=== PATIENT | female | born 1975 | race Caucasian/White ===

== ENCOUNTER 2019-08-05 07:42 | Emergency (ER) | payer MEDICAID, SELFPAY ==
--- NOTE | ~2019-08-05 | CT_ITS ---
EXAMINATION: CTA chest PE protocol DATE: 08/05/2019 10:14 INDICATION: Hemoptysis. TECHNIQUE: Computed tomography angiography (CTA) of the chest was performed with 100 mL Omnipaque-350 intravenous contrast timed to evaluate the pulmonary arteries. Coronal maximum intensity projection 3D-reconstructions were created by the technologist. Automated exposure control and iterative reconst ruction technique were employed. The dose-length product was 136.90 mGy-cm. COMPARISON: Chest 2 views 08/05/2019 FINDINGS: There is mild scarring at the lung apices. No pleural effusion. The heart size is normal. N o pericardial effusion. There is no pulmonary embolus. There are no pathologically enlarged lymph nod es. Thoracic kyphosis is noted. There is mild chronic anterior wedging of multiple thoracic vertebral bodies. There is severe spondylosis in mid thoracic spine. There is a benign bone island in T2 verte bral body. IMPRESSION: 1. No pulmonary embolus. Reviewed, dictated and finalized at location A. IMPRESSION: 1. No pulmonary embolus.
--- NOTE | ~2019-08-05 | XR_ITS ---
EXAMINATION: XR chest 2V 08/05/2019 08:25 INDICATION: Cough PROCEDURE: 2 view chest COMPARISON: 06/27/2017 FINDINGS: The lungs are clear. The cardiomediastinal silhouette is within normal limits. There are no pleural effusions. There is no pneumothorax suspected. IMPRESSION: 1: NO ACUTE CARDIOPULMONARY DISEASE. Reviewed, dictated and finalized at location A.
[2019-08-05 07:51] VITALS: BP 153/92; PULSE 102; RESP 16; TEMP 37; O2SAT 100
--- NOTE | 2019-08-05 08:06 | ED.NAVMDI ---
HPI - Nausea/Vomiting/Diarrhea General Chief complaint: Nausea/Vomiting/Diarrhea Stated complaint: coughing up blood Time Seen by Provider: 08/05/19 07:47 Source: patient Mode of arrival: ambulatory Limitations: no limitations History of Present Illness HPI Narrative: Pt is a 44 y/o female who presents to the ED with c/o hemoptysis that started this morning when she woke up. Pt also notes that she had epistaxis this morning and she feels nauseas from tasting the blood in the back of her throat. Pt reports associated myalgia and generalized weakness. She states that 3 days ago she started with a migraine, sore throat, sweats, chills, and a subjective fever. Pt's migraine is better and she denies rhinorrhea, calf pain, contraceptive use, or any recent foreign/domestic travel. She is a smoker. MD elicited complaint: other (hemoptysis) Onset (ago): hour(s) (this morning) Description of vomiting: bloody Associated nausea: Yes Associated symptoms: myalgias and weakness (generalized) Related Data Home Medications Medication Instructions Recorded Confirmed albuterol sulfate INHALATION 08/05/19 Allergies Allergy/AdvReac Type Severity Reaction Status Date / Time bee venom protein (honey bee) Allergy Severe Anaphylactic Verified 08/21/18 08:27 Shock Review of Systems Review of Systems: All systems reviewed & are unremarkable except as noted in HPI and below Constitutional: Constitutional: Reports body ache(s), Reports chills, Reports fever(s) (subjective), Reports weakness (generalized) and Reports other (sweats) ENT: Reports epistaxis, Reports sore throat and Denies other (rhinorrhea) Respiratory: Respiratory: Reports hemoptysis Gastrointestinal: Gastrointestinal: Reports nausea Musculoskeletal: Musculoskeletal: Denies other (calf pain) Neurologic: Reports headache(s) (resolved) [facility] Past Medical History Medical History (Updated 08/05/19 @ 11:43 by Emanuel Roy DO) Anxiety Arm fracture Asthma Bronchitis Depression Pneumonia Surgical History Surgical History (Updated 08/05/19 @ 08:31 by Yoana Mena) H/O removal of cyst benign rt breast H/O tubal ligation Social History Social History Smoking status: Current every day smoker Alcohol intake: current Exam Narrative: Exam Narrative: APPEARANCE: No acute distress, nontoxic, resting in bed EYES: EOMI HEENT: Normocephalic, atraumatic, TMs clear bilaterally, bilateral turbinates boggy, mild erythema no exudate of posterior pharynx RESPIRATORY: No respiratory distress Clear to auscultation bilaterally with no rhonchi wheezing or rales. CARDIOVASCULAR: Regular rate and rhythm without murmurs rubs or gallops. ABDOMINAL: Soft, nontender, nondistended, no rebound or guarding MUSCULOSKELETAl: Moves all extremities. No clubbing, cyanosis or edema. NEURO: Awake and alert. Following commands, speech normal, no focal deficits SKIN:: Warm, dry. No rashes lesions or abrasions PSYCHIATRIC: Normal affect/mood, TMs clear bilaterally Course Course Emergency Course: Patient states she is feeling better this time Discussed with patient results of workup and diagnosis. Discussed need for follow-up with primary care, proper use of medication, and reasons to return to the emergency department. Patient understands and agrees to current treatment plan Vital Signs Vital signs: Vital Signs Temperature 98.6 F 08/05/19 07:51 Pulse Rate 102 H 08/05/19 07:51 Respiratory Rate 16 08/05/19 07:51 Blood Pressure 153/92 H 08/05/19 07:51 Pulse Oximetry 100 08/05/19 07:51 Temperature 98.6 F 08/05/19 07:51 Pulse Rate 102 H 08/05/19 07:51 Respiratory Rate 16 08/05/19 07:51 Blood Pressure 153/92 H 08/05/19 07:51 Pulse Oximetry 100 08/05/19 07:51 MDM - Nausea/Vomiting/Diarrhea Lab Data Result diagrams: 08/05/19 08:28 08/05/19 08:25 Labs: Lab Results 0
[2019-08-05 08:43] LABS: Basophils Percent Auto 0.7 % (0.2-1.2); Eosinophils Absolute Auto 0.5 K/mm3 (0-0.3); Eosinophils Percent Auto 8.9 % (0-4.4); Hemoglobin 12.1 g/dL (12.0-15.0); Immature Granulocyte Absolute 0.02 K/mm3 (0.00-0.031); Immature Granulocyte Percent A 0.3 % (0-0.5); Lymphocytes Absolute Auto 1.84 K/mm3 (0.9-3.2); Lymphocytes Percent Auto 31.4 % (18.3-44.2); Mean Corpuscular HGB Conc 32.7 g/dl (32-36); Mean Corpuscular Volume 91.8 fl (80-100); Mean Platelet Volume 9.3 fl (7.4-10.4); Monocytes Absolute Auto 0.5 K/mm3 (0.1-0.6); Monocytes Percent Auto 8.2 % (2.6-8.5); Neutrophils Percent Auto 50.5 % (45.5-73.1); Platelet Count Result 313 k/mm3 (150-375); Red Blood Count 4.03 M/mm3 (4.2-5.4); Red Cell Distribution Width 12.8 % (11.5-14.5); White Blood Count 5.9 K/mm3 (4.5-10.0)
[2019-08-05 08:53] LABS: INR 0.9; Partial Thromboplastin Time 25.1 SECONDS (22.3-36.8); Prothrombin Time 11.8 Seconds (11.1-14.7)
[2019-08-05] MEDS: SODIUM CHLORIDE 0.9% IV 1,000 ML 999 ML IV CONT (09:07)
[2019-08-05 09:44] LABS: Alanine Aminotransferase 12 U/L (4-35); Albumin Level 3.9 g/dL (3.5-5.1); Alkaline Phosphatase 52 U/L (38-126); Aspartate Amino Transferase 19 U/L (14-36); Bilirubin,Total 0.2 mg/dL (0.2-1.3); Blood Urea Nitrogen 15 mg/dL (7-17); Calcium 8.9 mg/dL (8.4-10.2); Carbon Dioxide 29 mmol/L (22-30); Chloride 105 mmol/L (98-107); Estimated CRCL calculation 35 ml/min; Estimated Glomerular Filt Rate > 60; Glucose 91 mg/dL (65-105); Potassium 4.3 mmol/L (3.4-5.0); Sodium 138 mmol/L (137-145)
--- NOTE | 2019-08-05 11:31 | PC.NURSE ---
Contacted lab about UA results, lab states they could not locate specimen. Another specimen sent to lab at this time, waiting for results.
[2019-08-05 11:38] LABS: Add Urine Microscopic? YES; Appearance Urine Cloudy (Clear); Bacteria Urine Trace /hpf; Bilirubin Urine Negative (Negative); Blood Urine Negative (Negative); Calcium Oxalate Crystals Urine Many /hpf; Color Urine Yellow (Yellow); Glucose Urine UA Negative (Negative); Ketones Urine Negative (Negative); Leukocyte Esterase Ur Negative LEU/UL (Negative); Mucus Urine Few /lpf; Nitrate Urine Negative (Negative); Protein Urine Negative (Negative); Specific Grav Ur 1.023 (1.001-1.035); Squamous Epithelial Cell Urine Many /hpf (Few); Urobilinogen Urine Negative mg/dL (<2.0); WBC Urine 0-3 /hpf
[2019-08-05 11:48] VITALS: BP 134/70; PULSE 86; RESP 18; O2SAT 99
== END 2019-08-05 12:11 | disposition home or self-care (01) ==
PROVIDERS: Emergency Provider Emergency Medicine
DX: J06.9 Acute upper respiratory infection, unspecified (principal); J45.909 Unspecified asthma, uncomplicated; F17.200 Nicotine dependence, unspecified, uncomplicated
CPT/HCPCS: 36415; 71046; 71275; 80053; 81001; 81025; 85025; 85610; 85730; 87804; 96361; 96365; 99284; J0131; J7030; Q9967

== ENCOUNTER 2021-07-13 10:10 | Emergency (ER) | payer OTHER, SELFPAY ==
[2021-07-13 10:23] VITALS: BP 137/76; PULSE 94; RESP 16; TEMP 36.8; O2SAT 100
--- NOTE | 2021-07-13 10:24 | ED.BACK ---
HPI - Back Pain/Injury General Chief Complaint: Back Pain/Injury Stated Complaint: Back/side pain Time Seen by Provider: 07/13/21 10:24 Source: patient Mode of arrival: ambulatory Limitations: no limitations History of Present Illness HPI Narrative: 46 yo F presents with c/o R sided low back pain with radiation into R buttock and down R leg for 4 days. taking ibuprofen and tylenol does relieve pain a little. pt thought she had kidney infection so started taking Azo with no relief. has not urinary symptoms. ambulatory with steady gait. no loss of bowel or bladder. no weakness to LEs. no saddle anesthesia. all systems reviewed and negative except as noted above. Related Data Home Medications Medication Instructions Recorded Confirmed albuterol sulfate 90 mcg INHALATION DIRECTED PRN 07/13/21 07/13/21 Allergies Allergy/AdvReac Type Severity Reaction Status Date / Time bee venom protein (honey bee) Allergy Severe Anaphylactic Verified 08/21/18 08:27 Shock Review of Systems Review of Systems: All systems reviewed & are unremarkable except as noted in HPI and below Constitutional: Constitutional: Reports as per HPI Eyes: Eyes: Reports as per HPI ENT: Reports as per HPI Cardiovascular: Cardiovascular: Reports as per HPI Respiratory: Respiratory: Reports as per HPI Gastrointestinal: Gastrointestinal: Reports as per HPI Genitourinary: Genitourinary: Reports as per HPI Musculoskeletal: Musculoskeletal: Reports back pain and Reports radiating pain into limb Integumentary/Breasts: Skin/Breast: Reports as per HPI Neurologic: Reports as per HPI Psychiatric: Psychiatric: Reports as per HPI Endocrine: Endocrine: Reports as per HPI Hematologic/Lymphatic: Hematologic/Lymphatic: Reports as per HPI Allergic/Immunologic: Allergic/Immunologic: Reports as per HPI [facility] Past Medical History Medical History (Updated 07/13/21 @ 10:46 by Nery Nelson NP) Anxiety Arm fracture Asthma Bronchitis Depression Pneumonia Surgical History Surgical History (Updated 08/05/19 @ 08:31 by Yoana Mena) H/O removal of cyst benign rt breast H/O tubal ligation Social History Social History Smoking status: Current every day smoker Alcohol intake: current Comments At time of signature, agree with nursing past medical, surgical, social and family history. There is no relevant family history pertinent to the presenting complaint. Exam Narrative: GENERAL: Well-appearing, well-nourished, and in no acute distress. HEAD: Normocephalic, atraumatic. EYES: PERRLA and EOMI. NECK: Supple. No lymphadenopathy. CHEST: Clear to auscultation. No respiratory distress. HEART: Regular rate and rhythm. Distal pulses palpable and equal, cap refill <3 seconds ABDOMEN: Soft, nontender, nondistended, normal active bowel sounds, no palpable or pulsatile masses. No CVA tenderness MUSCULOSKELETAL: Normal range of motion and strength in all extremities; 5/5 strength with hip flexion and extension, dorsiflexion and extension, knee flexion and extension, plantar flexion and extension. Normal sensation in dermatomal distributions with sensitivity to light touch and pain. No midline back tenderness to palpation. Tender to R SI/muscle tenderness. Transfers from lying to sitting to standing. SKIN: Warm, dry, no rash. No ecchymosis, erythema, open wounds to back. NEURO: No focal deficits. Alert and oriented x3. Reflexes intact. Normal gait. PSYCH: Normal mood and affect Course Course Level of Care: Express Care Visit Vital Signs Vital signs: Vital Signs Temperature 36.8 C 07/13/21 10:23 Pulse Rate 94 07/13/21 10:23 Respiratory Rate 16 07/13/21 10:23 Blood Pressure 137/76 07/13/21 10:23 Pulse Oximetry 100 07/13/21 10:23 Temperature 36.8 C 07/13/21 10:23 Pulse Rate 94 07/13/21 10:23 Respiratory Rate 16 07/13/21 10:23 Blood Pressure 137/76 02
[2021-07-13] MEDS: KETOROLAC 30 MG/ML VIAL (*BKC) IM (10:43)
== END 2021-07-13 11:08 | disposition home or self-care (01) ==
PROVIDERS: Emergency Provider Nurse Practitioner Family
DX: M54.41 Lumbago with sciatica, right side (principal); J45.909 Unspecified asthma, uncomplicated; F17.200 Nicotine dependence, unspecified, uncomplicated
CPT/HCPCS: 81003; 96372; 99213; G0463; J1885

== ENCOUNTER 2023-02-12 10:53 | Emergency (ER) | payer OTHER, SELFPAY ==
[2023-02-12 11:08] VITALS: BP 131/80; PULSE 102; RESP 16; TEMP 36.8; O2SAT 100
[2023-02-12 11:15] VITALS: BP 131/80; PULSE 102; RESP 16; TEMP 36.8; O2SAT 100
--- NOTE | 2023-02-12 11:19 | ECG_ITS ---
Measurements Intervals [place] Rate: 99 P: 59 SC: 133 QRS: 40 QRSD: 88 T: 74 QT: 345 QTc: 444 Interpretive Statements SINUS RHYTHM POSSIBLE LEFT ATRIAL ENLARGEMENT CANNOT RULE OUT SEPTAL INFARCT, AGE INDETERMINATE BORDERLINE ST-T WAVE ABNORMALITY- DIFFUSE LEADS ABNORMAL ECG NO PREVIOUS ECG AVAILABLE FOR COMPARISON Electronically Signed On 02-12-2023 11:34:36 CDT by Shawn Carvalho D.O.
--- NOTE | 2023-02-12 11:20 | PC.NURSE ---
in br to obtain ua spec.
--- NOTE | 2023-02-12 11:20 | ED.GENADULT ---
HPI - General Adult General Chief complaint: Upper Respiratory Infection Stated complaint: weak,diarrhea,chest pain exposed to a gas leak Time Seen by Provider: 02/12/23 11:18 Source: patient Mode of arrival: ambulatory Limitations: no limitations History of Present Illness HPI narrative: Kitty is a 48-year-old female patient presenting to the clinic today with complaints of a history of exposure to a gas leak on Sunday night. She reports that she felt okay Sunday and however Sunday she developed chest pain that occurred overnight into about 3:00 a.m Sunday morning. She reports reports that she thought that this chest pain was due to acid reflux. She took some Pepto and went to bed and her stated she moaned all night long due to the pain. She reports that when she woke up Sunday morning the pain was gone however she is now having weakness, shaking, and diarrhea. She denies any shortness of breath or chest pain currently. She denies any known COVID, flu, or strep exposure. She denies any fever or chills. Related Data Home Medications Medication Instructions Recorded Confirmed albuterol sulfate 90 mcg/actuation 90 mcg inhalation DIRECTED PRN 07/13/21 02/12/23 aerosol inhaler Shortness Of Breath Iud 02/12/23 Unknown Antidepressant 02/12/23 Allergies Allergy/AdvReac Type Severity Reaction Status Date / Time bee venom protein (honey bee) Allergy Severe Anaphylactic Verified 02/12/23 11:16 Shock Review of Systems Review of Systems: Pertinent positives per HPI. Patient denies any fever, chills, rash, headache, visual changes, dizziness, cough, shortness of breath, chest pain, palpitations, nausea, vomiting, diarrhea, constipation, abdominal pain, or any urinary issues. [facility] Past Medical History Medical History Anxiety Arm fracture Asthma Bronchitis Depression Pneumonia Surgical History Surgical History H/O removal of cyst benign rt breast H/O tubal ligation Social History Social History Smoking status: Current every day smoker Alcohol intake: current Comments At the time of my signature, I reviewed and agree with the nursing past medical, surgical, social, and family history. There is no relevant family history pertinent to the patient complaint. Exam Narrative: General: Well-developed, thin, in no apparent distress, upper extremity tremors, anxious appearing Head: Normocephalic, atraumatic Eyes: Pupils equally round and reactive to light bilaterally, EOM intact, sclera and conjunctive clear, no discharge, lids normal Ears: TMs intact and clear, ear canals clear, no drainage, grossly hearing normal. Nose: Nares patent, no discharge, no inflammation, no sinus tenderness. Mouth: Oral pharynx without lesions or masses, good dentition, MMM. Neck: Supple, trachea midline, no enlargement of anterior or posterior cervical nodes, no thyroid masses or goiter palpable. Cardio: Tachycardic- regular rate and rhythm, s1 and s2 normal, no murmur appreciated. Resp: Clear to auscultation bilaterally, no rhonchi, rales, wheezing or rubs Abdomen: Soft, pliable, nondistended, nontender to palpation, no organomegaly, bowel sounds present all 4 quadrants, no CVAT tenderness Course Course Emergency Course: Portions of this record may have been created with voice recognition software. Level of Care: Express Care Visit Vital Signs Vital signs: Vital Signs Temperature 36.8 C 02/12/23 11:08 Pulse Rate 102 H 02/12/23 11:08 Respiratory Rate 16 02/12/23 11:08 Blood Pressure 131/80 02/12/23 11:08 Pulse Oximetry 100 02/12/23 11:08 Oxygen Delivery Room Air 02/12/23 11:08 Temperature 36.8 C 02/12/23 11:15 Pulse Rate 102 H 02/12/23 11:15 Respiratory Rate 16 02/12
== END 2023-02-12 11:46 | disposition short-term general hospital (02) ==
LOC: EXPCOLL 10:58
PROVIDERS: Emergency Provider Nurse Practitioner Family
DX: R53.1 Weakness (principal); R25.9 Unspecified abnormal involuntary movements; R19.7 Diarrhea, unspecified; R94.31 Abnormal electrocardiogram [ECG] [EKG]; F17.200 Nicotine dependence, unspecified, uncomplicated; J45.909 Unspecified asthma, uncomplicated
CPT/HCPCS: 81003; 93005; 99213; G0463

== ENCOUNTER 2023-02-12 12:05 | Emergency (ER) | payer OTHER, SELFPAY ==
--- NOTE | ~2023-02-12 | XR_ITS ---
EXAMINATION: XR chest 2V DATE: 02/12/2023 12:26 INDICATION: Chest pain TECHNIQUE: PA and lateral views of the chest are obtained. COMPARISON: 08/05/2019 FINDINGS: The lungs are free of acute opacities. No pleural effusion or pneumothorax. The cardiomedia stinal silhouette is normal. Mild chronic anterior wedging is noted in multiple thoracic vertebral sasha dies. IMPRESSION: 1. No acute cardiopulmonary abnormality. Reviewed, dictated and finalized at location B.
--- NOTE | 2023-02-12 12:08 | ECG_ITS ---
Measurements Intervals [place] Rate: 88 P: 59 [place]: 127 QRS: 30 QRSD: 89 T: 75 QT: 370 QTc: 448 Interpretive Statements SINUS RHYTHM POSSIBLE LEFT ATRIAL ENLARGEMENT CANNOT RULE OUT SEPTAL INFARCT, AGE INDETERMINATE BORDERLINE ST-T WAVE ABNORMALITY- ANTEROLAT/HIGH LAT LEADS ABNORMAL ECG COMPARED TO ECG 02/12/2023 11:31:43 NO SIGNIFICANT CHANGES Electronically Signed On 02-12-2023 12:51:26 CDT by Shawn Carvalho D.O.
[2023-02-12 12:14] VITALS: BP 141/77; PULSE 86; RESP 18; TEMP 36.9; O2SAT 97
[2023-02-12 12:26] VITALS: O2SAT 98
[2023-02-12 12:44] LABS: Basophils Percent Auto 0.4 % (0.2-1.2); Eosinophils Absolute Auto 0.4 K/mm3 (0-0.3); Eosinophils Percent Auto 4.9 % (0-4.4); Hematocrit 42.1 % (37.0-47.0); Hemoglobin 14.1 g/dL (12.0-15.0); Immature Granulocyte Absolute 0.02 K/mm3 (0.00-0.031); Immature Granulocyte Percent A 0.3 % (0-0.5); Lymphocytes Percent Auto 25.8 % (18.3-44.2); Mean Corpuscular HGB Conc 33.5 g/dl (32-36); Mean Corpuscular Hemoglobin 30.4 pg (26-34); Mean Corpuscular Volume 90.7 fl (80-100); Mean Platelet Volume 8.9 fl (7.4-10.4); Monocytes Absolute Auto 0.6 K/mm3 (0.1-0.6); Monocytes Percent Auto 7.6 % (2.6-8.5); Neutrophils Absolute Auto 4.7 K/mm3 (1.3-6.7); Platelet Count Result 335 k/mm3 (150-375); Red Blood Count 4.64 M/mm3 (4.2-5.4); Red Cell Distribution Width 12.6 % (11.5-14.5); White Blood Count 7.8 K/mm3 (4.5-10.0)
[2023-02-12 12:53] LABS: Alanine Aminotransferase 19 U/L (6-35); Alkaline Phosphatase 48 U/L (38-126); Anion Gap 6 mmol/L (8-16); Aspartate Amino Transferase 29 U/L (14-36); Bilirubin,Total 0.4 mg/dL (0.2-1.3); Blood Urea Nitrogen 17 mg/dL (7-17); Calcium 8.7 mg/dL (8.4-10.2); Carbon Dioxide 26 mmol/L (22-30); Chloride 105 mmol/L (98-107); Estimated CRCL calculation 84 ml/min; Estimated Glomerular Filt Rate > 60; Glucose 129 mg/dL (65-110); Lipase 78 U/L (23-300); Potassium 3.8 mmol/L (3.4-5.0); Sodium 137 mmol/L (137-145)
[2023-02-12 12:55] LABS: INR 0.9; Partial Thromboplastin Time 25.6 SECONDS (22.3-36.8); Prothrombin Time 12.9 Seconds (11.1-14.7)
[2023-02-12 13:05] LABS: Troponin I < 0.012 ng/mL (0.000-0.034)
[2023-02-12 13:11] LABS: Influenza A QL RT-PCR Negative (Negative); Influenza B QL RT-PCR Negative (Negative); SARS-CoV-2 RNA PCR Negative (Negative)
[2023-02-12 13:15] VITALS: BP 132/71; PULSE 73; RESP 23; O2SAT 100
--- NOTE | 2023-02-12 13:36 | ED.GENADULT ---
HPI - General Adult General Chief complaint: Chest Pain Stated complaint: chest pain Time Seen by Provider: 02/12/23 13:27 History of Present Illness HPI narrative: Patient is a 48-year-old female with a history of depression, asthma presenting with general malaise. Patient states that for the last several days she has been feeling very fatigued with diffuse body aches. States that about 2 days ago she had 5 to 6 hours of severe heartburn. States that she vomited a couple of times. States that the symptoms have all resolved. States that she slept all day yesterday which is not like her. She denies fevers or chills, headache, numbness or weakness, chest pain, shortness of breath, abdominal pain, diarrhea, leg swelling, dysuria. Related Data Home Medications Medication Instructions Recorded Confirmed albuterol sulfate 90 mcg/actuation 90 mcg inhalation DIRECTED PRN 07/13/21 02/12/23 aerosol inhaler Shortness Of Breath Iud 02/12/23 Unknown Antidepressant 02/12/23 Allergies Allergy/AdvReac Type Severity Reaction Status Date / Time bee venom protein (honey bee) Allergy Severe Anaphylactic Verified 02/12/23 11:16 Shock Review of Systems Review of Systems: All systems reviewed & are unremarkable except as noted in HPI and below PMFSH Past Medical History Medical History Anxiety Arm fracture Asthma Bronchitis Depression Pneumonia Surgical History Surgical History H/O removal of cyst benign rt breast H/O tubal ligation Social History Social History Smoking status: Current every day smoker Alcohol intake: current Exam Narrative: GENERAL: Appears fatigued, nontoxic, in no acute distress, pleasant and cooperative HEAD: Normocephalic, atraumatic. EYES: PERRLA and EOMI. ENT: Nares clear, no rhinorrhea or epistaxis. Mucous membranes moist. NECK: Supple. CHEST: Clear to auscultation. No respiratory distress. No wheezing HEART: Regular rate and rhythm. ABDOMEN: Soft, nontender, nondistended EXTREMITIES: Normal range of motion. No edema. SKIN: Warm, dry, no rash. NEURO: No focal deficits. Alert and oriented x3. PSYCH: Normal mood and affect. Course Vital Signs Vital signs: Vital Signs Temperature 98.5 F 02/12/23 12:14 Pulse Rate 86 02/12/23 12:14 Respiratory Rate 18 02/12/23 12:14 Blood Pressure 141/77 H 02/12/23 12:14 Pulse Oximetry 97 02/12/23 12:14 Temperature 98.0 F 02/12/23 15:31 Pulse Rate 86 02/12/23 15:31 Respiratory Rate 15 02/12/23 15:31 Blood Pressure 154/97 H 02/12/23 15:31 Pulse Oximetry 99 02/12/23 15:31 Oxygen Delivery Room Air 02/12/23 12:26 Medical Decision Making MDM Narrative Medical decision making narrative: Patient is a 48-year-old female presenting with several days of general malaise and fatigue. Vitals are stable. Exam remarkable for the above. EKG per my interpretation shows normal sinus rhythm, normal axis and intervals, nonspecific T wave abnormalities. Blood work unremarkable. Troponin undetectable. Negative for COVID and influenza. Chest x-ray without acute abnormalities. On reevaluation, the patient states that she feels much better. She is asking to go home which I think is reasonable. Advised adequate hydration and appropriate supportive care. Appropriate return precautions given. Patient voiced understanding and is agreeable with plan. Discharged in stable condition. Differential Diagnosis Differential Diagnosis: Viral syndrome, COVID-19, fatigue, dehydration, [facility] Medical Records Medical records reviewed: Yes I reviewed the external patient's medical records. Vital Signs Vital Signs: Vital Signs Temperature 98.5 F 02/12/23 12:14 Pulse Rate 86 02/12/23 12:14 Respiratory Rate 18 02/12/23 12:14 Blood Pressur
[2023-02-12 13:45] VITALS: BP 135/80; PULSE 71; RESP 17; O2SAT 100
[2023-02-12] MEDS: KETOROLAC 30 MG/ML VIAL (*BKC) IV PUSH (13:52)
[2023-02-12] MEDS: SODIUM CHLORIDE 0.9% IV 1,000 ML 999 ML IV CONT (13:52)
[2023-02-12 15:31] VITALS: BP 154/97; PULSE 86; RESP 15; TEMP 36.7; O2SAT 99
== END 2023-02-12 15:32 | disposition home or self-care (01) ==
PROVIDERS: Preventive Medicine Aerospace Medicine; Emergency Provider Emergency Medicine
DX: R53.81 Other malaise (principal); R53.83 Other fatigue; R12 Heartburn; Z20.822 Contact with and (suspected) exposure to COVID-19; J45.909 Unspecified asthma, uncomplicated; F32.A Depression, unspecified; F41.9 Anxiety disorder, unspecified; Z87.01 Personal history of pneumonia (recurrent); F17.200 Nicotine dependence, unspecified, uncomplicated; R94.31 Abnormal electrocardiogram [ECG] [EKG]
CPT/HCPCS: 36415; 71046; 80053; 81003; 83690; 84484; 85025; 85610; 85730; 87636; 93005; 96361; 96374; 99284; J1885; J7030